=== PATIENT | female | born 1945 | race Caucasian/White ===

== ENCOUNTER 2018-12-24 09:29 | Emergency (ER) | payer BC, OTHER ==
[~2018-12-24] VITALS: Ht 170.2 cm; Wt 56.7 kg
[~2018-12-24 09:29] MED LIST: ALIGN4 MG PO; ALPHAGAN P5 ML OU; BAYER WOMEN'S1 EACH PO; CLORAZEPATE DI7.5 MG PO; ENTOCORT EC3 MG PO; LEVSIN0.125 MG PO; LISINOPRIL10 MG PO; METFORMIN HCL500 MG PO; NOVALOG SQ; PLAVIX75 MG PO; TANDEM PLUS CA1 EACH PO; THERACRAN650 MG PO; TOUJEO SQ; TRAVATAN Z5 ML OP
--- OUTSIDE RECORDS SUMMARY | 2018-12-24 09:31 | XMS REPORT | Clinical Summary ---
Author Author [facility] Organization [facility] Address Unknown Phone Unavailable Care Team Providers Care Hand Bander Name Role Phone Van Arvizu MD PCP Allergies Comments Active Allergy Reactions Severity Noted Date Ulsxhpiiuhgl-Ffv-Dokeljzs Anaphylaxis High 08/13/2016 ophen Divalproex Other (See 08/13/2016 Comments) Sodium Ferric Anaphylaxis High 08/13/2016 Gluconat-Sucrose Hallucination Morphine Other (See 09/03/2016 Comments) unknown Mirabegron Other (See 08/13/2016 Comments) Topiramate Other (See 08/13/2016 Comments) Medications End Date Status Medication Sig Dispensed Refills Start Date Active budesonide EC (ENTOCORT TAKE 3 11 EC) 3 mg 24 hr capsule CAPSULE(S) BY 6 MOUTH DAILY Active clopidogrel (PLAVIX) 75 2 mg tablet 6 Active clorazepate (TRANXENE) TAKE 3 3 7.5 MG tablet TABLETS BY 6 MOUTH 3 TIMES A DAY Active ESTRACE 0.01 % (0.1 APPLY 4 mg/gram) vaginal cream DIRECTED WITH 6 FINGERTIP TO VAGINAL OPENING 3 TIMES A WEEK Active SE-MATTHEWS PLUS 162-115.2-1 Take 1 4 mg capsule capsule by 6 mouth once daily. Active latanoprost (XALATAN) PLACE 1 DROP 3 0.005 % ophthalmic INTO BOTH 6 solution EYES DAILY. 90-DAY SUPPLY Active lisinopril Take 20 mg by 3 (PRINIVIL,ZESTRIL) 20 MG mouth 2 (two) 6 tablet times a day. Active BD ULTRA-FINE XAVI PEN USE WITH 10 NEEDLES 32 gauge x 5/32" INSULIN 6 needle INJECTIONS 4 TIMES DAILY Active Problems Problem Noted Date Diabetes mellitus 09/01/2016 Hypertension 09/01/2016 Closed fracture of hip 09/01/2016 Hip fracture 09/01/2016 Family History Medical History Relation Name Comments Coronary artery disease Brother Coronary artery disease Mother Relation Name Status Comments Brother Mother Social History Date Tobacco Use Types Packs/Day Years Used Never Smoker Alcohol Use Drinks/Week oz/Week Comments No Sex Assigned at Date Recorded Not on file Industry Job Start Date Occupation Not on file Not on file Not on file Travel End Travel History Travel Start No recent travel history available. Last Filed Vital Signs Not on file Plan of Treatment Health Maintenance Due Date Last Done Comments DIABETIC RETINAL EYE EXAM 1947 DIABETIC FOOT EXAM 1957 URINE MICROALBUMIN 1957 BREAST CANCER SCREENING 1997 COLON CANCER SCREENING 1997 SHINGLES VACCINES (#1) 1997 65+ PNEUMOCOCCAL VACCINE 2012 (1 of 2 - PCV13) PNEUMOCOCCAL 2012 POLYSACCHARIDE VACCINE AGE 65 AND OVER INFLUENZA VACCINE 05/29/2018 Implants Device Identifier Shelf Expiration Date Model / Serial / Lot Implanted Type Area Manufactur er 08/29/2021 1023 365 / / NA Es Trochanteric Nail, Right, 11mm IPM N/A: N/A ADVANCED X 36cm X 125-Deg - [id number] IMPLANT ORTHOP[employer] Implanted: Qty: 1 on 09/07/2016 by [employer] Figueroa Palomo MD 1099 095 / / Sagar Lag Screw, 10.5mm X 95mm - IPM N/A: N/A ADVANCED [id number] IMPLANT ORTHOPEDIC Implanted: Qty: 1 on 09/07/2016 by DEVICES Figueroa Palomo MD 8001 032 / / Captured Cortical Screw, 5.0mm X IPM N/A: N/A ADVANCED 32mm - [id number] IMPLANT ORTHOPEDIC Implanted: Qty: 1 on 09/07/2016 by Figueroa Rene MD [id number] 070 / / A/R Screw, 5.0mm X 70mm - IPM N/A: N/A ADVANCED [id number] IMPLANT ORTHOPEDIC Implanted: Qty: 1 on 09/07/2016 by [employer] Figueroa Palomo MD 08/26/2019 0101 900S / / [id number] Ball Tip Guide Wire - [id number] IPM Right: N/A ADVANCED Implanted: Qty: 1 on 09/07/2016 by SUPPLIES Figueroa Javed MD PATIENT SOLUTIONS NON-BILLAB LE 08/29/2021 0257 / / NA 16.5 Cannula Red Drill - [id number] IPM N/A: N/A ADVANCED Implanted: Qty: 1 on 09/07/2016 by SUPPLIES Figueroa Javed MD PATIENT SOLUTIONS NON-BILLAB LE 08/29/2021 0457 / / NA Activation Tool - [id number] IPM N/A: N/A ADVANCED Implanted: Qty: 1 on 09/07/2016 by SUPPLIES Figueroa Javed MD PATIENT SOLUTIONS NON-BILLAB LE 08/29/2021 0100 / / NA Pin Guide Tib Nail Sys 33cm 3.2mm - Orthopedic N/A: N/A AOS [id number] Trauma ADVANCED Implanted: Qty: 2 on 09/07/2016 by Implants Figueroa Keating MD SOLUTIONS Results Not on fileafter 12/23/2017 Insurance Payer Benefit Subscriber ID Type Phone Address Plan / Group MEDICARE MEDICARE xxxxxxxxxx Medicare [place], [place] PART A BCBS BCBS xxxxxxxxxxxx PPO CHOICE PPO/JANE [employer] PPO Advance Directives Patient has advance care planning documents, and code status on file. For more i nformation, please contact: Newton Ramirez [address] [place] [address] Date Inactivated Comments Code Status Date Activated 09/12/2016 8:14 PM Full Code 09/01/2016 9:54 PM Code Status decision reached by: Patient
[2018-12-24] MEDS ORDERED: QUETIAPINE FUMA25 MG PO (10:18)
[2018-12-24] MEDS ORDERED: METOPROLOL TART25 MG PO (10:18)
[2018-12-24] MEDS ORDERED: HUMALOG100 UNIT/1 SQ (10:18)
[2018-12-24] MEDS ORDERED: FEOSOL45 MG PO (10:18)
[2018-12-24] MEDS ORDERED: ALPRAZOLAM0.5 MG PO (10:18)
[2018-12-24] MEDS ORDERED: MORPHINE SULFATE 2 MG/ML SYR 1ML IV STA (10:31)
[2018-12-24] MEDS ORDERED: ONDANSETRON HCL INJ 2MG/ML 2ML 2 MG/ML VIAL IV STA (10:31)
[2018-12-24] MEDS ORDERED: MORPHINE SULFATE INJ 4 MG/ML INJ 1ML IV ONE (10:45)
--- NOTE | 2018-12-24 11:07 | Diagnostic Imaging Report ---
LEFT ANKLE - 3 Images HISTORY: Fell, inversion ankle injury COMPARISON: None available. FINDINGS: Bones: Diffusely decreased mineralization of the osseous structures limits bone detail. Mildly comminuted oblique fracture of the distal fibular metadiaphysis, the medial extent of the fracture appears to extend above the level of the distal tibiofibular syndesmosis. Subtle cortical irregularity at the medial aspect of the tibial plafond and adjacent irregular ill-defined hypodensity at the distal tibia in the region of the base of the medial malleolus. Joints: Small nonspecific tibiotalar joint effusion. Soft tissues: Moderate regional soft tissue swelling. IMPRESSION: 1. Nondisplaced fracture involving the distal fibular metadiaphysis. 2. Nondisplaced fracture involving the base of the medial malleolus. 3. Diffuse osseous demineralization, recommend correlation with bone densitometry. Signed by: Dr. Christian Devine D.O., M.M.M. on 12/24/2018 11:04 AM
[2018-12-24 12:47] VITALS: BP 175/89
== END 2018-12-24 13:27 | disposition home or self-care (01) ==
LOC: ER 09:29
DX: S82.392A Other fracture of lower end of left tibia, initial encounter for closed fracture (principal); S82.425A Nondisplaced transverse fracture of shaft of left fibula, initial encounter for closed fracture; X50.1XXA Overexertion from prolonged static or awkward postures, initial encounter; Y92.008 Other place in unspecified non-institutional (private) residence as the place of occurrence of the external cause; I10 Essential (primary) hypertension; E11.9 Type 2 diabetes mellitus without complications
CPT/HCPCS: 29515; 36415; 73610; 82948; 99284; J2270; J2405